=== PATIENT | male | born 1970 | race Caucasian/White ===

== ENCOUNTER 2019-02-17 06:15 | Day surgery (SDC) | payer OTHER ==
[~2019-02-17] VITALS: Ht 182.9 cm; Wt 90.7 kg
--- NOTE | 2019-02-17 08:02 | NUR ---
02/17/19 0802 Saba Isaac 0783 PT ARRIVED TO PACU, AWAKENS TO VOICE. REPORT RECV'D. PT NOTED TO HAVE LOW BP. O2 STABLE. DENIES PAIN. ABD SOFT. ADVISED PT REGARDING ANTICIPATED GAS PAIN. FLATUS NOTED. 0755 BP REMAINS SOFT. PT ASKED TO ROLL TO BACK, FOLLOW COMMANDS. NEW LITER OF IV FLUIDS INFUSING FOR BP SUPPORT. PT AWAKENS TO VOICE. O2 DECREASED TO 2L VIA NC, O2 97%. PT SNORING SOFTLY.
--- NOTE | 2019-02-18 08:11 | OR ---
[facility] [address], [place] [address] Signed DATE OF OPERATION: 02/17/2019 SURGEON: Raheel Gonzalez MD PREOPERATIVE DIAGNOSIS: Screening. POSTOPERATIVE DIAGNOSES: 1. Minimal sigmoid diverticulosis. 2. Mildly indurated prostate gland. PROCEDURE PERFORMED: Colonoscopy without biopsy. ESTIMATED BLOOD LOSS: None. INDICATIONS: Ramos is a 48-year-old gentleman, asked to see me for his initial screening colonoscopy. He said he has no lower GI complaints. There is no family history of colon cancer or polyps. I gave Mirlande pamphlet in the office on colonoscopy. We looked at that together along with the risks including, but not limited to gas bloating, crampy abdominal pain, bleeding, perforation, requiring surgery, and missed diagnosis. He also understands the need for IV conscious sedation. He had expressed understanding and wished to proceed. PROCEDURE NOTE: Ramos was taken into our endoscopy suite and placed in the left lateral decubitus position. He was given IV sedation with a total of 9 mg of Versed and 150 mcg of fentanyl. A digital rectal exam was performed and this was unremarkable except for some mild induration to the prostate gland. The adult colonoscope was introduced and advanced all around into the cecum under direct visualization of camera without difficulty. His prep was quite good. We could easily see the appendiceal orifice, the Nulato's foot and the ileocecal valve. We had taken pictures throughout for photodocumentation. The scope was then slowly withdrawn. He had several small diverticula in the sigmoid colon. They were quite small, few in number, and scattered about. The rectum itself was unremarkable. Upon retroflexion of the scope, there was no additional pathology noted. After this, the gas was suctioned out. The colonoscope removed. Ramos tolerated the procedure quite well. Electronically Signed By: RAHEEL GONZALEZ MD 02/18/19 0811 PATIENT NAME: RAMOS FRIAS OPERATIVE REPORT DATE OF : 66 REPORT #: [id number] PHYSICIAN: RAHEEL GONZALEZ MD PCP: CONRADO RUIZ PAC REPORT IS CONFIDENTIAL AND NOT TO BE RELEASED WITHOUT AUTHORIZATION [address] [address] Signed RECOMMENDATIONS: Ramos can follow up in 10 years for repeat colonoscopy. MD SULEMA Pavon/MALCOLML /[id number] cc: CAITLIN Barajas MD Copies: CONRADO RUIZ ANDREW L MD ~ Electronically Signed By: RAHEEL GONZALEZ MD 02/18/19 0811 PATIENT NAME: RAMOS FRIAS OPERATIVE REPORT DATE OF : 66 REPORT #: [id number] PHYSICIAN: RAHEEL GONZALEZ MD PCP: CONRADO RUIZ PAC REPORT IS CONFIDENTIAL AND NOT TO BE RELEASED WITHOUT AUTHORIZATION
== END 2019-02-17 08:47 | disposition home or self-care (01) ==
LOC: DS 06:15 → OPS 06:15 → DS 06:45 → OPS 08:47
PROVIDERS: Colon & Rectal Surgery
PROC: 0DJD8ZZ Inspection of Lower Intestinal Tract, Via Natural or Artificial Opening Endoscopic (ICD-10-PCS; principal; 2019-02-17 06:45)
DX: Z12.11 Encounter for screening for malignant neoplasm of colon (principal); K57.30 Diverticulosis of large intestine without perforation or abscess without bleeding; N42.89 Other specified disorders of prostate; Z88.0 Allergy status to penicillin; Z88.6 Allergy status to analgesic agent
CPT/HCPCS: 99153; G0500; J2250; J3010; J7120